=== PATIENT | male | born 1950 | race Caucasian/White ===

== ENCOUNTER → 2017-05-19 | Outpatient (CLI) | payer OTHER | LOC: BMCIMAGING 14:30 | PROVIDERS: ATTEND Internal Medicine | DX: M25.551 Pain in right hip (principal) ==

== ENCOUNTER 2018-03-07 19:45 | Emergency (ER) | payer OTHER ==
--- NOTE | 2018-03-07 20:29 | EDPHY ---
H & P Stated Complaint: POUNDING AND HARD HR X2 WKS, SIGHING, FUNNY FEELING IN CHEST/ THROAT Time Seen by Provider: 03/07/18 19:51 HPI/ROS: CHIEF COMPLAINT: Pounding heartbeat HISTORY OF PRESENT ILLNESS: 67-year-old male presents with episodic pounding heartbeat. Onset of a pounding heartbeat several weeks ago. The heartbeat is not fast or slow, but feels pounding and loud. The episodes last several minutes and then completely resolves. Associated with a need to take a deep breath, but no shortness of breath. No chest pain. The episodes tend to happen after eating. No exertional symptoms. No recent cough, fever. No prior cardiac evaluation. Cardiac risk factors negative. Nonsmoker; no family history; no hypertension, diabetes or hypercholesterolemia. REVIEW OF SYSTEMS: complete 10 point ROS reviewed and is negative except for the noted elements in the HPI - Personal History Current Tetanus/Diphtheria Vaccine: Yes - Medical/Surgical History Hx Asthma: No Hx Chronic Respiratory Disease: No Hx Diabetes: No Hx Cardiac Disease: No Hx Renal Disease: No Hx Cirrhosis: No Hx Alcoholism: No Hx HIV/AIDS: No Hx Splenectomy or Spleen Trauma: No Other PMH: OSTEOPENIA, HERNIA, TRIGGER FINGER, HAND FX, ANKLE FX - Social History Smoking Status: Never smoked Alcohol Use: Other (Moderate alcohol use) Drug Use: None Additional Social History: - Physical Exam Exam: General Appearance: Alert, pleasant Eyes: Pupils equal and round, no conjunctival pallor or injection ENT, Mouth: Mucous membranes moist Neck: Normal inspection Respiratory: Lungs are clear to auscultation Cardiovascular: Regular rate and rhythm Gastrointestinal: Abdomen is soft and nontender Neurological: A&O, nonfocal, normal gait Skin: Warm and dry, no rash Extremities: Nontender, no pedal edema Psychiatric: Mood and affect normal Constitutional: Initial Vital Signs Heart Rate 56 L 03/07/18 19:51 Respiratory Rate 18 03/07/18 19:51 Blood Pressure 129/73 H 03/07/18 19:51 O2 Sat (%) 96 03/07/18 19:51 O2 Delivery Mode Room Air Allergies/Adverse Reactions: Penicillins Allergy (Unknown, Verified 03/07/18 19:48) Unknown Home Medications: Medication Instructions Recorded Aspirin 81mg (*) 03/07/18 Chlorthalidone 03/07/18 Glaucoma Eye Drop 03/07/18 Klor-Con 03/07/18 Medical Decision Making - Diagnostics EKG Interpretation: EKG interpreted by me reveals sinus rhythm, rate 52, abnormal R-wave progression no ST or T segment changes. Interpretation: Borderline EKG. Imaging Results: Chest x-ray independently reviewed by me reveals no acute disease. ED Course/Re-evaluation: This patient presents with an intermittent pounding heart rate. No associated chest pain or shortness of breath. Stat EKG reveals sinus bradycardia, rate 52. I do not suspect acute coronary syndrome in this patient whose primary symptom is a pounding heartbeat. laboratory monitor reveals normal sinus rhythm with occasional PACs. The patient is clearly symptomatic with the PACs. Discussed with the patient and his , will follow up with Dr. Lopes in the office. Differential Diagnosis: Differential diagnosis includes does not limited to SVT, atrial fibrillation, ventricular dysrhythmia, acute coronary syndrome, anxiety - Data Points Laboratory Results: Laboratory Results 03/07/18 20:00 03/07/18 20:00 Medications Given: Discontinued Medications Sodium Chloride (Ns) 1,000 mls @ 0 mls/hr IV ONCE ONE; Wide Open PRN Reason: Protocol Stop: 03/07/18 20:50 Last Admin: 03/07/18 21:09 Dose: 1,000 mls Point of Care Test Results: Chemistry 03/07/18 20:11 POC Troponin I 0.01 ng/mL ng/mL (0.00-0.08) Departure - Departure Disposition: Home, Routine, Self-Care Clinical Impression: Premature atrial contractions Condition: Good Instructions: Premature Atrial Contractions (ED) Additional Instructions: You are having PAC's (premature atrial contractions). These are not serious. Return for worsening symptoms, chest pain, shortness of breath or any concerns. Referrals: Bony Lopes MD [Primary Care Provider] - As per Instructions (Call to make an appointment.)
[2018-03-07 20:41] LABS: PLATELET COUNT 186 10^3/uL (150-400)
[2018-03-07] MEDS ORDERED: NS 1,000 ML IV ONE (20:49)
--- NOTE | 2018-03-07 20:49 | CPEKG ---
Test Reason : OPEN Blood Pressure : / mmHG Vent. Rate : 052 BPM Atrial Rate : 052 BPM P-R Int : 147 ms QRS Dur : 109 ms QT Int : 445 ms P-R-T Axes : 029 -06 024 degrees QTc Int : 414 ms Sinus rhythm Abnormal R-wave progression, early transition Confirmed by Alicia Abad ([id number]) on 03/07/2018 8:48:36 PM Referred By: Confirmed By:Alicia Abad
[2018-03-07 21:47] VITALS: BP 137/71
== END 2018-03-07 21:51 | disposition home or self-care (01) ==
DX: I49.1 Atrial premature depolarization (principal); E86.9 Volume depletion, unspecified
CPT/HCPCS: 84484-PO

== ENCOUNTER → 2018-03-23 | Outpatient (CLI) | payer OTHER | LOC: BHFA 16:00 | PROVIDERS: ATTEND Internal Medicine Cardiovascular Disease | DX: R00.2 Palpitations (principal) ==